=== PATIENT | male | born 1935 | race Caucasian/White ===

== ENCOUNTER 2018-04-25 09:18 | Emergency (ER) | payer MEDICARE ==
[~2018-04-25 09:18] MED LIST: ABILIF5PT PO; CITA-145 PO; LOR5/325 PO; METO50TA19 PO; SIMV-54 PO
[2018-04-25] MEDS ORDERED: ASPIRIN 81 MG CHEW CHEW ONE (09:35)
--- NOTE | 2018-04-25 09:41 | ER Report ---
History and Physical Time Seen By MD: 09:41 Hx. of Stated Complaint: PT REPORTS CHEST PAIN AND SOB SINCE SUNDAY HPI/ROS SOB for the past 3 days. No chest pain. No fever/chills. No PE risk factors. Remainder of the 14 system rev: Yes Allergies: Coded Allergies: No Known Drug Allergies (Unverified , 04/25/18) Home Meds Reported Medications Citalopram Hydrobromide (CITALOPRAM HBR) 20 Mg Tablet, 20 MG PO QDAY, TAB 02/05/15 Simvastatin (SIMVASTATIN) 40 Mg Tablet, 40 MG PO HS, TAB 02/05/15 Aripiprazole (ABILIFY) 5 Mg Tablet, 5 MG PO 2XW, #10 TAB 02/05/15 Reviewed Nurses Notes: Yes Old Medical Records Reviewed: Yes Hx Smoking: No Smoking Status: Never Smoker Hx Substance Use Disorder: No Hx Alcohol Use: Yes Constitutional Physical Exam General Appearance: The patient is alert, has no immediate need for airway protection and no current signs of toxicity. Eyes: Pupils equal and round no injection. Respiratory: diffuse wheezing throughout, but moving air Cardiac: regular rate and rhythm Gastrointestinal: Abdomen is soft and non tender, no masses, bowel sounds normal. Extremities have full range of motion and are non tender. Skin: No rashes or lesions. DIFFERENTIAL DIAGNOSIS: After history and physical exam differential diagnosis was considered for shortness of breath including but not limited to pulmonary infectious process, COPD, asthma, pulmonary embolus and congestive heart failure. Medical Decision Making Data Points Laboratory Hematology Test 04/25/18 09:31 04/25/18 15:26 Red Blood Count 5.08 M/uL (4.00-5.60) Mean Corpuscular Volume 97.5 fL (80.0-96.0) Mean Corpuscular Hemoglobin 33.1 pg (26.0-33.0) Mean Corpuscular Hemoglobin Concent 33.9 g/dL (32.0-36.0) Red Cell Distribution Width 15.3 % (11.5-14.5) Mean Platelet Volume 8.9 fL (7.2-11.1) Neutrophils (%) (Auto) 78.9 % (39.4-72.5) Lymphocytes (%) (Auto) 11.3 % (17.6-49.6) Monocytes (%) (Auto) 8.4 % (4.1-12.4) Eosinophils (%) (Auto) 0.8 % (0.4-6.7) Basophils (%) (Auto) 0.6 % (0.3-1.4) Nucleated RBC Relative Count (auto) 0.1 /100WBC Neutrophils # (Auto) 7.2 K/uL (2.0-7.4) Lymphocytes # (Auto) 1.0 K/uL (1.3-3.6) Monocytes # (Auto) 0.8 K/uL (0.3-1.0) Eosinophils # (Auto) 0.1 K/uL (0.0-0.5) Basophils # (Auto) 0.1 K/uL (0.0-0.1) Nucleated RBC Absolute Count (auto) 0.01 K/uL Sodium Level 141 mmol/L (137-145) Potassium Level 3.9 mmol/L (3.5-5.0) Chloride Level 103 mmol/L (98-107) Carbon Dioxide Level 26 mmol/L (22-30) Blood Urea Nitrogen 12 mg/dl (9-21) Creatinine 1.00 mg/dl (0.66-1.25) Glomerular Filtration Rate Calc > 60.0 Random Glucose 121 mg/dl (75-110) Calcium Level 8.9 mg/dl (8.4-10.2) Total Bilirubin 1.2 mg/dl (0.2-1.3) Aspartate Amino Transf (AST/SGOT) 36 U/L (0-35) Alanine Aminotransferase (ALT/SGPT) 31 U/L (0-56) Alkaline Phosphatase 95 U/L (0-126) Total Protein 7.6 g/dl (6.3-8.2) Albumin 4.0 g/dl (3.5-5.0) Troponin I 0.084 ng/ml Chemistry Test 04/25/18 09:31 04/25/18 15:26 White Blood Count 9.1 k/uL (4.5-11.0) Red Blood Count 5.08 M/uL (4.00-5.60) Hemoglobin 16.8 g/dL (14.0-18.0) Hematocrit 49.6 % (42.0-52.0) Mean Corpuscular Volume 97.5 fL (80.0-96.0) Mean Corpuscular Hemoglobin 33.1 pg (26.0-33.0) Mean Corpuscular Hemoglobin Concent 33.9 g/dL (32.0-36.0) Red Cell Distribution Width 15.3 % (11.5-14.5) Platelet Count 164 K/uL (150-450) Mean Platelet Volume 8.9 fL (7.2-11.1) Neutrophils (%) (Auto) 78.9 % (39.4-72.5) Lymphocytes (%) (Auto) 11.3 % (17.6-49.6) Monocytes (%) (Auto) 8.4 % (4.1-12.4) Eosinophils (%) (Auto) 0.8 % (0.4-6.7) Basophils (%) (Auto) 0.6 % (0.3-1.4) Nucleated RBC Relative Count (auto) 0.1 /100WBC Neutrophils # (Auto) 7.2 K/uL (2.0-7.4) Lymphocytes # (Auto) 1.0 K/uL (1.3-3.6) Monocytes # (Auto) 0.8 K/uL (0.3-1.0) Eosinophils # (Auto) 0.1 K/uL (0.0-0.5) Basophils # (Auto) 0.1 K/uL (0.0-0.1) Nucleated RBC Absolute Count (auto) 0.01 K/uL Glomerular Filtration Rate Calc > 60.0 Calcium Level 8.9 mg/dl (8.4-10.2) Total Bilirubin 1.2 mg/dl (0.2-1.3) Aspartate Amino Transf (AST/SGOT) 36 U/L (0-35) Alanine Aminotransferase (ALT/SGPT) 31 U/L (0-56) Alkaline Phosphatase 95 U/L (0-126) Total Protein 7.6 g/dl (6.3-8.2) Albumin 4.0 g/dl (3.5-5.0) Troponin I 0.084 ng/ml ED Course/Re-evaluation ED Course Acute on chronic shortness of breath. No evidence of infection. Not consistent with MO. Not consistent with PE. Patient feels improved at this time. We'll continue home medications and follow-up with his primary care physician. Decision to Disposition Date: Apr 25, 2018 Decision to Disposition Time: 16:23 Depart Departure Latest Vital Signs Impression: Primary Impression: Shortness of breath on exertion Condition: Improved Disposition: HOME OR SELF-CARE Referrals: AUTUMN TRIPP MD (PCP) Patient Instructions: Dyspnea (ED) FRANKY LITTLE MD Apr 25, 2018 09:41
[2018-04-25 09:44] LABS: PLATELET COUNT, AUTOMATED 164 K/uL (150-450)
--- NOTE | 2018-04-25 09:48 | EKG ---
FACILITY: [facility] PATIENT NAME: VANCE GARZA : [id number] MR: [id number] V: [id number] EXAM DATE: ORDERING PHYSICIAN: FRANKY LITTLE TECHNOLOGIST: AILYN Collins Reason : CARDIAC Blood Pressure : / mmHG Vent. Rate : 101 BPM Atrial Rate : 101 BPM P-R Int : 188 ms QRS Dur : 092 ms QT Int : 402 ms P-R-T Axes : 030 251 -40 degrees QTc Int : 521 ms Sinus tachycardia with fusion complexes Right superior axis deviation Pulmonary disease pattern T wave abnormality, consider inferior ischemia T wave abnormality, consider anterolateral ischemia Abnormal ECG When compared with ECG of 08-FEB-2015 11:13, fusion complexes are now present CO interval has decreased Incomplete right bundle branch block is no longer present Confirmed by AUTUMN HUERTA ([id number]) on 04/25/2018 4:24:49 PM Referred By: Confirmed By:AUTUMN HUERTA
--- NOTE | 2018-04-25 10:07 | RADIOLOGY IMAGING REPORT ---
FACILITY: [facility] [place] PATIENT NAME: Cooper Hobson : 1935 MR: [id number] V: [id number] EXAM DATE: ORDERING PHYSICIAN: FRANKY LITTLE TECHNOLOGIST: Location: [facility] Patient: Cooper Hobson : 1935 Visit/Account:[id number] Date of Sevice: 04/25/2018 CHEST PA AND LAT Additional pertinent History: Chest pressure COMPARISON STUDIES: None FINDINGS: Support lines and catheters: None Lungs and Pleura: Lung vance well expanded with no infiltrates or consolidations. No parenchymal ma ss lesions are seen. There are no effusions Heart and vasculature: Negative. Lucia and Mediastinum: Negative. 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 IMPRESSION: 1. Negative chest Report Dictated By: Wilfred Stout MD at 04/25/2018 10:01 AM Report E-Signed By: Wilfred Stout MD at 04/25/2018 10:03 AM WSN:[email or web address]
[2018-04-25] MEDS ORDERED: NS(*) 0.9% 1000 ML BAG 1,000 ML IV ONE (12:40)
[2018-04-25 16:15] VITALS: BP 126/89
== END 2018-04-25 16:27 | disposition home or self-care (01) ==
LOC: ER 09:45
DX: R06.02 Shortness of breath (principal)
CPT/HCPCS: 36415; 71046; 84484; 85025; 93005; 96360; 99284; A9270; J7030; 82040; 82247; 82310; 82374; 82435; 82565; 82947; 84075; 84132; 84155; 84295; 84450; 84460; 84520

== ENCOUNTER → 2018-04-30 | Outpatient (CLI) | payer MEDICARE ==
[~2018-04-30] MED LIST changes: +REGADENOSON 0.4 MG/5 ML SYR ONE
--- NOTE | 2018-04-30 14:52 | RT STRESS TEST REPORT ---
FACILITY: [facility] PATIENT NAME: VANCE GARZA : [id number] MR: [id number] V: [id number] EXAM DATE: ORDERING PHYSICIAN: FRANKY LITTLE TECHNOLOGIST: Jarrod Acquisition Time: 2018-04-30 14:29:48 Total Exercise Time: 00:01:00 Test Indications: Chest Discomfort Medications: see nuc med list Protocol: LEXISCAN Max HR: 090 BPM 65% of Pred: 137 BPM Max BP: 141/086 mmHG Max Work Load: 1.0 METS Stress was performed using Lexiscan protocol. He did experience some chest tightness with the infusio n. The resting ST-T changes did "normalize" somewhat with the infusion. No dysrhythmias were noted. His symptoms did resolve quickly. Await Myov iew images. Confirmed by CAMILA CHUNG ([id number]) on 04/30/2018 2:52:27 PM Referred By: Humberto Joshi Overread By: CAMILA CHUNG
--- NOTE | 2018-04-30 16:25 | RADIOLOGY IMAGING REPORT ---
FACILITY: [facility] [place] PATIENT NAME: Cooper Hobson : 1935 MR: [id number] V: [id number] EXAM DATE: ORDERING PHYSICIAN: FRANKY LITTLE TECHNOLOGIST: Location: [facility] Patient: Cooper Hobson : 1935 Visit/Account:[id number] Date of Sevice: 04/30/2018 REGADENOSON (LEXISCAN) MYOCARDIAL PERFUSION IMAGING. EXAMINATION: Single isotope SPECT imaging with regadenoson infusion and gated SPECT imaging. DATE OF EXAMINATION: April 30, 2018. REQUESTING PHYSICIAN:SIDNEY INDICATION: Chest pain PROCEDURE: After informed consent the patient received an intravenous injection of Tc-99m sestamibi followed at an appropriate time interval by rest imaging. The patient then subsequently received an intravenous infusion of 0.4 mg of regadenoson per protocol without complication. Resting heart rate was 65 bpm with a peak heart rate of 90 bpm. Blood pressure at rest was 133/89 and following infusi on was 141/86 . Baseline EKG demonstrates sinus rhythm with diffuse T-wave inversion. There were no EKG changes of ischemia following infusion. Non-specific symptoms were reported. The patient then received an intravenous injection of Tc-99m sestamibi followed by stress imaging. DOSE of Tc-99m sestamibi (mCi): REST: 12.2 STRESS: 31.1 RAW DATA: Examination of the summed raw data revealed a good quality study. MYOCARDIAL PERFUSION: The tomographic images demonstrate normal myocardial perfusion without evidenc e of myocardial ischemia or infarct with minor attenuation artifact noted. GATED IMAGES: The gated images demonstrate normal LV systolic performance and wall motion with LVEF 82%. IMPRESSION: 1. Nondiagnostic ECG portion of Lexiscan stress test. 2. Normal myocardial perfusion study without evidence of myocardial ischemia or infarct with minor at tenuation artifact noted 3. Normal LV systolic performance and wall motion with LVEF 82% Report Dictated By: Wilfred Harrell at 04/30/2018 4:19 PM Report E-Signed By: Wilfred Harrell at 04/30/2018 4:21 PM WSN:[id number]
== END ==
LOC: RESP 09:35
PROVIDERS: ATTEND Emergency Medicine
DX: R07.89 Other chest pain (principal)
CPT/HCPCS: 78452; 93017; A9500; J2785

== ENCOUNTER → 2018-08-23 | Outpatient (CLI) | payer MEDICARE ==
[~2018-08-23] MED LIST changes: -REGADENOSON 0.4 MG/5 ML SYR ONE
== END ==
LOC: AUD 08:45
PROVIDERS: ATTEND Family Medicine
DX: H90.3 Sensorineural hearing loss, bilateral (principal)
CPT/HCPCS: 92552